=== PATIENT | male | born 1975 | race Caucasian/White ===

== ENCOUNTER 2018-03-09 21:13 | Emergency (ER) | payer BC, MEDICAID ==
[~2018-03-09] VITALS: Ht 193 cm; Wt 93.0 kg
[~2018-03-09 21:13] MED LIST: CEPH-571 PO; HYDR-4383 PO
[2018-03-09 21:19] VITALS: BP 123/78
[2018-03-09] MEDS ORDERED: SULF1TAB49 PO (23:17)
== END 2018-03-10 00:08 | disposition home or self-care (01) ==
LOC: ER 21:14
DX: H60.02 Abscess of left external ear (principal); L02.412 Cutaneous abscess of left axilla; R23.8 Other skin changes; G89.29 Other chronic pain; Z86.14 Personal history of Methicillin resistant Staphylococcus aureus infection; Z88.0 Allergy status to penicillin
CPT/HCPCS: 10060; 99283

== ENCOUNTER 2018-08-12 21:28 | Emergency (ER) | payer MEDICAID ==
[~2018-08-12] VITALS: Ht 193 cm; Wt 86.3 kg
[~2018-08-12 21:28] MED LIST changes: +MUPI1OIN8 BOTHNARES
[2018-08-12 22:00] VITALS: BP 127/83
[2018-08-12] MEDS ORDERED: CLOT15CR73 TP (23:52)
== END 2018-08-13 00:25 | disposition home or self-care (01) ==
LOC: ER 21:29
DX: B35.3 Tinea pedis (principal); G89.29 Other chronic pain; F12.90 Cannabis use, unspecified, uncomplicated; Z90.49 Acquired absence of other specified parts of digestive tract; Z88.0 Allergy status to penicillin; Z59.0 Homelessness; Z79.899 Other long term (current) drug therapy
CPT/HCPCS: 99283

== ENCOUNTER 2018-10-20 22:50 | Emergency (ER) | payer MEDICAID ==
[~2018-10-20] VITALS: Ht 195.6 cm; Wt 90.9 kg
[~2018-10-20 22:50] MED LIST changes: +CLOT15CR73 TP
[2018-10-20 23:10] VITALS: BP 112/76
--- NOTE | 2018-10-21 01:24 | NUR ---
Call placed to number on file after attempting to Rm 3 times. A female answered the phone, reported that "[place] is not the tree expert of this phone anymore". Dr. Shaikh informed.
[2018-10-22] MEDS ORDERED: SULF1TAB49 PO (05:19)
[2018-10-22] MEDS ORDERED: CLIN150C8 PO (05:19)
== END 2018-10-21 01:26 | disposition left against medical advice (07) ==
LOC: ER 22:51
DX: S81.002A Unspecified open wound, left knee, initial encounter (principal); L02.415 Cutaneous abscess of right lower limb; Z53.21 Procedure and treatment not carried out due to patient leaving prior to being seen by health care provider; X58.XXXA Exposure to other specified factors, initial encounter; Y93.89 Activity, other specified; Y92.89 Other specified places as the place of occurrence of the external cause; Y99.8 Other external cause status

== ENCOUNTER 2018-10-22 03:44 | Emergency (ER) | payer MEDICAID ==
[~2018-10-22] VITALS: Ht 193 cm; Wt 90.0 kg
[2018-10-22 03:48] VITALS: BP 131/78
[2018-10-22] MEDS ORDERED: ketorolac trometh. 30mg/ml inj. IV ONE (04:05)
[2018-10-22] MEDS ORDERED: clindamycin phosphate inj 600 MG in normal saline 50ml IV soln 50 ML IV ONE (04:05)
[2018-10-22] MEDS ORDERED: sulfamethoxazole/trimethoprim DS (800/160mg) tablet PO ONE (04:05)
[2018-10-22] MEDS ORDERED: normal saline 1000ML IV soln IV ONE (04:05)
[2018-10-22] MEDS ORDERED: clindamycin phosphate inj 600 MG in dextrose 5%-water 50ml 50 ML IV ONE (04:08)
[2018-10-22 04:41] LABS: BASOPHILS # (AUTO) 0.1 X10'3 (0-0.2); BASOPHILS % (AUTO) 0.7 % (0-1); EOSINOPHILS # (AUTO) 0.2 X10'3 (0-0.9); EOSINOPHILS % (AUTO) 2.2 % (0-6); HEMATOCRIT 35.6 % (42.0-52.0); HEMOGLOBIN 11.9 g/dl (14.0-17.9); LYMPHOCYTES # (AUTO) 2.6 X10'3 (1.1-4.8); LYMPHOCYTES % (AUTO) 27.1 % (21-51); MEAN CORPUSCULAR HEMOGLOBIN 29.3 PG (27.0-31.0); MEAN CORPUSCULAR HGB CONC 33.4 g/dL (33.0-36.5); MEAN CORPUSCULAR VOLUME 87.5 FL (78-98); MEAN PLATELET VOLUME 7.4 FL (7.4-10.4); MONOCYTES # (AUTO) 0.8 X10'3 (0-0.9); MONOCYTES % (AUTO) 8.9 % (2-12); NEUTROPHILS # (AUTO) 5.8 X10'3 (1.8-7.7); NEUTROPHILS % (AUTO) 61.1 % (42-75); PLATELET COUNT 297 X10'3 (140-440); RED BLOOD COUNT 4.07 X10'6 (4.70-6.10); RED CELL DISTRIBUTION WIDTH 13.2 % (11.5-14.5); WHITE BLOOD COUNT 9.4 X10'3 (4.5-11.0)
[2018-10-22 04:58] LABS: ALANINE AMINOTRANSFERASE 27 U/L (12-78); ALBUMIN 3.3 G/DL (3.4-5.0); ALBUMIN/GLOBULIN RATIO 0.9 (1.1-1.5); ALKALINE PHOSPHATASE 85 IU/L (46-116); ANION GAP 6 (8-16); ASPARTATE AMINO TRANSFERASE 14 U/L (10-37); BILIRUBIN,TOTAL 0.4 MG/DL (0.1-1.0); BLOOD UREA NITROGEN 21 MG/DL (7-18); BUN/CREATININE RATIO 20.2 (5.4-32.0); CALCIUM 9.1 MG/DL (8.5-10.1); CHLORIDE 100 MMOL/L (99-107); CREATININE 1.04 MG/DL (0.60-1.10); GLUCOSE 84 MG/DL (70-104); MAGNESIUM 2.1 MG/DL (1.5-2.4); POTASSIUM 3.8 MMOL/L (3.5-5.1); SODIUM 136 MMOL/L (135-145); eGFR 78 ML/MIN
[2018-10-22 04:59] LABS: PARTIAL THROMBOPLASTIN TIME 32 SECONDS (22-32)
[2018-10-22] MEDS ORDERED: CLIN150C8 PO (05:19)
[2018-10-22] MEDS ORDERED: SULF1TAB49 PO (05:19)
== END 2018-10-22 06:34 | disposition home or self-care (01) ==
LOC: ER 03:44
DX: L02.415 Cutaneous abscess of right lower limb (principal); G89.29 Other chronic pain; Z86.14 Personal history of Methicillin resistant Staphylococcus aureus infection; F12.90 Cannabis use, unspecified, uncomplicated; Z90.49 Acquired absence of other specified parts of digestive tract; Z88.0 Allergy status to penicillin; Z79.899 Other long term (current) drug therapy
CPT/HCPCS: 36415; 71045; 80053; 83605; 83735; 84145; 85025; 85610; 85730; 87040; 93005; 96365; 96375; 99284; J1885; J3490; J7030; J7060

== ENCOUNTER 2019-01-16 01:13 | Emergency (ER) | payer MEDICAID ==
[~2019-01-16] VITALS: Ht 195.6 cm; Wt 84.1 kg
[~2019-01-16 01:13] MED LIST changes: +CLIN150C8 PO
[2019-01-16 01:15] VITALS: BP 116/66
[2019-01-16] MEDS ORDERED: CefTRIAXone 250MG IM Kit w/LIDOcaine IM ONE (02:15)
[2019-01-16] MEDS ORDERED: CefTRIAXone 250MG inj IM ONE (02:15)
[2019-01-16] MEDS ORDERED: azithromycin 250mg tablet PO ONE (02:15)
[2019-01-16] MEDS ORDERED: LEVO500T2 PO (02:38)
[2019-01-16] MEDS ORDERED: DOXY100C43 PO (02:44)
[2019-01-16 03:03] LABS: CLARITY,URINE CLEAR (Clear); COLOR,URINE YELLOW (Yellow); GLUCOSE, URINE NEGATIVE (Neg); KETONES,URINE NEGATIVE (Neg); LEUKOCYTE ESTERASE ,URINE NEGATIVE (Neg); NITRITES, URINE NEGATIVE (Neg); OCCULT BLOOD,URINE NEGATIVE (Neg); PROTEIN,URINE TRACE mg/dl (Neg); UA COLLECTION TYPE CLN CATCH MIDSTREAM
[2019-01-16 03:13] LABS: BACTERIA,URINE NONE SEEN /HPF (Neg); MUCUS STRANDS FEW /LPF (Neg); RBC,URINE NONE SEEN /HPF (0-2); SQUAMOUS EPITHELIAL CELL,UR NONE SEEN /LPF (FEW)
== END 2019-01-16 04:15 | disposition home or self-care (01) ==
LOC: ER 01:13
DX: N45.1 Epididymitis (principal); G89.29 Other chronic pain; F12.90 Cannabis use, unspecified, uncomplicated; F10.99 Alcohol use, unspecified with unspecified alcohol-induced disorder; Z90.49 Acquired absence of other specified parts of digestive tract; Z86.14 Personal history of Methicillin resistant Staphylococcus aureus infection; Z88.0 Allergy status to penicillin; Z79.899 Other long term (current) drug therapy; Y90.9 Presence of alcohol in blood, level not specified
CPT/HCPCS: 36415; 76870; 81001; 87088; 87491; 87591; 96372; 99284; J0696

== ENCOUNTER 2019-02-09 21:47 | Emergency (ER) | payer MEDICAID ==
[~2019-02-09] VITALS: Ht 193 cm; Wt 84.0 kg
[2019-02-09] MEDS ORDERED: ketorolac tromethamine 15mg/ml inj. IM ONE (22:45)
[2019-02-09] MEDS ORDERED: HYDROcodone/acetaminophen 10/325mg tab PO ONE (23:35)
[2019-02-10 00:12] VITALS: BP 110/54
[2019-02-10] MEDS ORDERED: NO HOME MEDS (00:39)
[2019-02-10 00:44] LABS: BASOPHILS # (AUTO) 0.1 X10'3 (0-0.2); BASOPHILS % (AUTO) 0.8 % (0-1); EOSINOPHILS # (AUTO) 0.1 X10'3 (0-0.9); EOSINOPHILS % (AUTO) 1.7 % (0-6); HEMATOCRIT 34.8 % (42.0-52.0); HEMOGLOBIN 11.8 g/dl (14.0-17.9); LYMPHOCYTES # (AUTO) 1.9 X10'3 (1.1-4.8); LYMPHOCYTES % (AUTO) 22.2 % (21-51); MEAN CORPUSCULAR HEMOGLOBIN 29.2 PG (27.0-31.0); MEAN CORPUSCULAR HGB CONC 33.8 g/dL (33.0-36.5); MEAN CORPUSCULAR VOLUME 86.4 FL (78-98); MEAN PLATELET VOLUME 7.1 FL (7.4-10.4); MONOCYTES % (AUTO) 11.5 % (2-12); NEUTROPHILS # (AUTO) 5.4 X10'3 (1.8-7.7); NEUTROPHILS % (AUTO) 63.8 % (42-75); PLATELET COUNT 293 X10'3 (140-440); RED BLOOD COUNT 4.03 X10'6 (4.70-6.10); RED CELL DISTRIBUTION WIDTH 14.5 % (11.5-14.5); WHITE BLOOD COUNT 8.5 X10'3 (4.5-11.0)
[2019-02-10 01:10] LABS: ALANINE AMINOTRANSFERASE 831 U/L (12-78); ALBUMIN 3.1 G/DL (3.4-5.0); ALBUMIN/GLOBULIN RATIO 0.8 (1.1-1.5); ALKALINE PHOSPHATASE 152 IU/L (46-116); ANION GAP 7 (8-16); ASPARTATE AMINO TRANSFERASE 460 U/L (10-37); BILIRUBIN,TOTAL 0.4 MG/DL (0.1-1.0); BLOOD UREA NITROGEN 16 MG/DL (7-18); BUN/CREATININE RATIO 17.6 (5.4-32.0); CALCIUM 8.9 MG/DL (8.5-10.1); CHLORIDE 107 MMOL/L (99-107); CREATININE 0.91 MG/DL (0.60-1.10); GLUCOSE 88 MG/DL (70-104); SODIUM 141 MMOL/L (135-145); TOTAL CARBON DIOXIDE 26.9 MMOL/L (24-32); TOTAL PROTEIN 7.1 G/DL (6.4-8.2); eGFR 90 ML/MIN
[2019-02-10 01:12] LABS: POTASSIUM 4.5 MMOL/L (3.5-5.1)
== END 2019-02-10 01:50 | disposition left against medical advice (07) ==
LOC: ER 21:47
DX: S22.42XA Multiple fractures of ribs, left side, initial encounter for closed fracture (principal); F12.90 Cannabis use, unspecified, uncomplicated; M25.522 Pain in left elbow; Z72.89 Other problems related to lifestyle; Z88.0 Allergy status to penicillin; W01.0XXA Fall on same level from slipping, tripping and stumbling without subsequent striking against object, initial encounter; Y93.9 Activity, unspecified; Y92.9 Unspecified place or not applicable; Y99.9 Unspecified external cause status; Y99.8 Other external cause status
CPT/HCPCS: 36415; 71046; 71250; 80053; 85025; 96372; 99284; J1885; 99285

== ENCOUNTER 2019-04-23 21:07 | Emergency (ER) | payer MEDICAID ==
[~2019-04-23] VITALS: Ht 193 cm; Wt 86.4 kg
[~2019-04-23 21:07] MED LIST changes: -CEPH-571 PO; -CLIN150C8 PO; -CLOT15CR73 TP; -HYDR-4383 PO; -MUPI1OIN8 BOTHNARES; +NO HOME MEDS
[2019-04-23] MEDS ORDERED: azithromycin 250mg tablet PO ONE (21:30)
[2019-04-23] MEDS ORDERED: ketorolac trometh inj. 60 MG/2 ML VIAL IM ONE (21:30)
[2019-04-23] MEDS ORDERED: CefTRIAXone 250MG IM Kit w/LIDOcaine IM ONE (21:30)
[2019-04-23] MEDS ORDERED: DOXY100C43 PO (21:32)
[2019-04-23 22:07] VITALS: BP 121/65
== END 2019-04-23 22:08 | disposition home or self-care (01) ==
LOC: ER 21:08
DX: N45.1 Epididymitis (principal); G89.29 Other chronic pain; F10.99 Alcohol use, unspecified with unspecified alcohol-induced disorder; Z86.14 Personal history of Methicillin resistant Staphylococcus aureus infection; Z90.49 Acquired absence of other specified parts of digestive tract; Z88.0 Allergy status to penicillin; Z79.899 Other long term (current) drug therapy; Y90.9 Presence of alcohol in blood, level not specified
CPT/HCPCS: 96372; 99283; J0696; J1885

== ENCOUNTER 2019-10-24 10:16 | Emergency (ER) | payer MEDICAID ==
[~2019-10-24] VITALS: Ht 195.6 cm; Wt 90.9 kg
[2019-10-24] MEDS ORDERED: ketorolac trometh inj. 60 MG/2 ML VIAL IM ONE (11:20)
[2019-10-24] MEDS ORDERED: CEPH-572 PO (12:15)
[2019-10-24] MEDS ORDERED: cephalexin (12:15)
[2019-10-24] MEDS ORDERED: SULF1TAB49 PO (12:17)
[2019-10-24] MEDS ORDERED: IBUP-1986 PO (12:17)
[2019-10-24 12:31] VITALS: BP 133/79
== END 2019-10-24 12:30 | disposition home or self-care (01) ==
LOC: ER 10:17
DX: M70.822 Other soft tissue disorders related to use, overuse and pressure, left upper arm (principal); M25.522 Pain in left elbow; M79.89 Other specified soft tissue disorders; G89.29 Other chronic pain; F12.90 Cannabis use, unspecified, uncomplicated; Z86.14 Personal history of Methicillin resistant Staphylococcus aureus infection; Z90.89 Acquired absence of other organs; Z72.89 Other problems related to lifestyle; Z88.0 Allergy status to penicillin; Z79.2 Long term (current) use of antibiotics; Z79.899 Other long term (current) drug therapy; Y93.89 Activity, other specified
CPT/HCPCS: 73070; 96372; 99283; J1885

== ENCOUNTER 2019-11-09 15:52 | Emergency (ER) | payer MEDICAID ==
[~2019-11-09] VITALS: Ht 195.6 cm; Wt 94.6 kg
[~2019-11-09 15:52] MED LIST changes: +IBUP-1986 PO; +cephalexin
[2019-11-09 16:08] VITALS: BP 121/73
[2019-11-09] MEDS ORDERED: CefTRIAXone 250MG IM Kit w/LIDOcaine IM ONE (16:35)
[2019-11-09] MEDS ORDERED: azithromycin 250mg tablet PO ONE (16:35)
[2019-11-09] MEDS ORDERED: CEPH250T PO (16:45)
[2019-11-09] MEDS ORDERED: BACDS PO (16:45)
== END 2019-11-09 17:15 | disposition home or self-care (01) ==
LOC: ER 15:53
DX: R36.9 Urethral discharge, unspecified (principal); M79.602 Pain in left arm; Z20.2 Contact with and (suspected) exposure to infections with a predominantly sexual mode of transmission; G89.29 Other chronic pain; F12.90 Cannabis use, unspecified, uncomplicated; Z86.19 Personal history of other infectious and parasitic diseases; Z90.49 Acquired absence of other specified parts of digestive tract; Z72.89 Other problems related to lifestyle; Z88.0 Allergy status to penicillin; Z79.899 Other long term (current) drug therapy
CPT/HCPCS: 36415; 87491; 87591; 96372; 99283; J0696

== ENCOUNTER 2019-12-23 21:13 | Emergency (ER) | payer MEDICAID ==
[~2019-12-23] VITALS: Ht 195.6 cm; Wt 97.0 kg
[2019-12-23 21:18] VITALS: BP 149/78
--- NOTE | 2019-12-23 22:30 | NUR ---
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
== END 2019-12-23 22:53 | disposition left against medical advice (07) ==
LOC: ER 21:13
DX: S61.213A Laceration without foreign body of left middle finger without damage to nail, initial encounter (principal); G89.29 Other chronic pain; F12.90 Cannabis use, unspecified, uncomplicated; Z86.14 Personal history of Methicillin resistant Staphylococcus aureus infection; Z90.89 Acquired absence of other organs; Z72.89 Other problems related to lifestyle; Z88.0 Allergy status to penicillin; Z79.899 Other long term (current) drug therapy; W26.0XXA Contact with knife, initial encounter; Y93.01 Activity, walking, marching and hiking; Y92.89 Other specified places as the place of occurrence of the external cause; Y99.8 Other external cause status
CPT/HCPCS: 99281; 99282

== ENCOUNTER 2020-01-11 17:53 | Emergency (ER) | payer MEDICAID ==
[~2020-01-11] VITALS: Ht 195.6 cm; Wt 97.7 kg
[2020-01-11 18:55] VITALS: BP 136/69
[2020-01-11] MEDS ORDERED: acetaminophen 325mg tablet PO ONE ×2 (19:00→19:05)
== END 2020-01-11 19:07 | disposition home or self-care (01) ==
LOC: ER 17:54
DX: R50.9 Fever, unspecified (principal); R51.9 Headache, unspecified; R09.89 Other specified symptoms and signs involving the circulatory and respiratory systems; R05 Cough; Z20.828 Contact with and (suspected) exposure to other viral communicable diseases; G89.29 Other chronic pain; F12.90 Cannabis use, unspecified, uncomplicated; Z86.14 Personal history of Methicillin resistant Staphylococcus aureus infection; Z90.49 Acquired absence of other specified parts of digestive tract; Z72.89 Other problems related to lifestyle; Z88.0 Allergy status to penicillin; Z79.899 Other long term (current) drug therapy
CPT/HCPCS: 99282